=== PATIENT | male | born 1960 | race Hispanic/Latino ===

== ENCOUNTER 2019-09-03 17:47 | Emergency (ER) | payer OTHER ==
[2019-09-03] MEDS ORDERED: KETOROLAC 30 MG/ML INJ ONE (18:31)
--- NOTE | 2019-09-03 18:45 | ER ---
Nurse's Notes [facility] Name: Salazar Poole Age: 59 yrs Sex: Male : 1960 Arrival Date: 09/03/2019 Time: 17:47 Bed 9 Private MD: Diagnosis: Gout Presentation: 09/03 17:56 Presenting complaint: Patient states: Left wrist pain and swelling since yesterday. aj1 Patient reports history of gout. Transition of care: patient was not received from another setting of care. Onset of symptoms was 2018. Risk Assessment: Do you want to hurt yourself or someone else? Patient reports no desire to harm self or others. Initial Sepsis Screen: Does the patient meet any 2 criteria? No. Patient's initial sepsis screen is negative. Does the patient have a suspected source of infection? No. Patient's initial sepsis screen is negative. Care prior to arrival: None. 17:56 Method Of Arrival: Ambulatory aj 17:56 Acuity: DUARTE 4 aj1 Triage Assessment: 17:56 General: Appears in no apparent distress. uncomfortable, Behavior is calm, cooperative, aj1 appropriate for age. Pain: Complains of pain in left wrist Pain currently is 10 out of 10 on a pain scale. Neuro: Level of Consciousness is awake, alert, obeys commands. Cardiovascular: Patient's skin is warm and dry. Respiratory: Airway is patent Respiratory effort is even, unlabored, Respiratory pattern is regular, symmetrical. Musculoskeletal: Range of motion: limited in left wrist. Historical: - Allergies: 17:56 No Known Allergies; aj1 - Home Meds: 17:56 None [Active]; aj1 - PMHx: 17:56 Gout; aj1 - Immunization history:: Flu vaccine is not up to date. - Social history:: Smoking status: Patient/guardian denies using tobacco. - Ebola Screening: : Patient denies travel to an Ebola-affected area in the 21 days before illness onset. Screenin:20 Abuse screen: Denies threats or abuse. Nutritional screening: No deficits noted. tr5 Tuberculosis screening: No symptoms or risk factors identified. Fall Risk None identified. Assessment: 18:20 General: Appears uncomfortable, Behavior is calm, cooperative, appropriate for age. tr5 Pain: Complains of pain in left hand and wrist. Neuro: Level of Consciousness is awake, alert, obeys commands, Oriented to person, place, time. Cardiovascular: Heart tones present Capillary refill < 3 seconds Pulses are all present. Edema is 2+ to left hand. Respiratory: Airway is patent Respiratory effort is even, unlabored, Respiratory pattern is regular, symmetrical. GI: No signs and/or symptoms were reported involving the gastrointestinal system. : No signs and/or symptoms were reported regarding the genitourinary system. EENT: No signs and/or symptoms were reported regarding the EENT system. Derm: No signs and/or symptoms reported regarding the dermatologic system. Musculoskeletal: Reports pain in left hand. Vital Signs: 17:56 BP 166 / 98; Pulse 82; Resp 18; Temp 98.1; Pulse Ox 98% on R/A; Weight 96.16 kg (R); aj1 Height 5 ft. 6 in. (167.64 cm) (R); Pain 10/10; 17:56 Body Mass Index 34.22 (96.16 kg, 167.64 cm) aj1 ED Course: 17:47 Patient arrived in ED. as 17:56 Triage completed. aj1 17:56 Arm band placed on. aj1 18:01 Kodak Mcdowell PA is PHCP. [facility] 18:01 Juan Lee MD is Attending Physician. lena 18:28 Kvng Krause RN is Primary Nurse. tr5 18:55 No provider procedures requiring assistance completed. Patient did not have IV access tr5 during this emergency room visit. 18:56 Bed in low position. Call light in reach. Side rails up X 1. tr5 Administered Medications: 18:34 Drug: Ketorolac 30 mg Route: IM; Site: left ventrogluteal; tr5 19:00 Follow up: Response: Pain is decreased tr5 Outcome: 18:45 Discharge ordered by MD. [facility] 18:55 Discharged to home ambulatory. tr5 18:55 Condition: stable 18:55 Discharge instructions given to patient, family, Instructed on discharge instructions, follow up and referral plans. medication usage, Demonstrated understanding of instructions, follow-up care, medications, Prescriptions given X 2. 18:56 Patient left the ED. tr5 Signatures: Cyndi Espinosa RN RN aj Kodak Mcdowell PA PA jmm Martinez, Amelia as Jimi, Kvng, RN RN tr5
--- NOTE | 2019-09-03 18:45 | EDPHYS ---
Physician Documentation [facility] Name: Salazar Poole Age: 59 yrs Sex: Male : 1960 Arrival Date: 09/03/2019 Time: 17:47 Bed 9 Private MD: ED Physician Juan Lee HPI: 09/03 18:15 This 59 yrs old Male presents to ER via Ambulatory with complaints of Wrist jmm Pain - Gout. 18:15 Onset: The symptoms/episode began/occurred gradually, 2 day(s) ago. Modifying factors: jmm The symptoms are alleviated by nothing, the symptoms are aggravated by movement. This is a 59 year old male with a history of gout presents to the ED with complaints of left wrist pain beginning 2 days ago. Patient states he at [employer] on Monday. Denies fever. Has had similar symptoms in the past. . 18:25 Associated signs and symptoms: Pertinent negatives: fever, numbness distally, tingling jmm distally, vomiting. Historical: - Allergies: 17:56 No Known Allergies; aj1 - Home Meds: 17:56 None [Active]; aj1 - PMHx: 17:56 Gout; aj1 - Immunization history:: Flu vaccine is not up to date. - Social history:: Smoking status: Patient/guardian denies using tobacco. - Ebola Screening: : Patient denies travel to an Ebola-affected area in the 21 days before illness onset. ROS: 18:25 Constitutional: Negative for fever, chills, and weight loss, Cardiovascular: Negative jmm for chest pain, palpitations, and edema, Respiratory: Negative for shortness of breath, cough, wheezing, and pleuritic chest pain. 18:25 MS/extremity: Positive for pain. 18:25 All other systems are negative. Exam: 18:25 Hand exam: Exam is positive for erythema. jmm 18:25 Constitutional: This is a well developed, well nourished patient who is awake, alert, and in no acute distress. Head/Face: atraumatic. Eyes: EOMI, no conjunctival erythema appreciated ENT: Moist Mucus Membranes Neck: Trachea midline, Supple Chest/axilla: Normal chest wall appearance and motion. Cardiovascular: Regular rate and rhythm. No edema appreciated Respiratory: Normal respirations, no respiratory distress appreciated Abdomen/GI: Non distended, soft Back: Normal ROM Skin: General appearance color normal 18:25 Musculoskeletal/extremity: erythema noted to the left wrist, no indurations appreciated, mildly tender to palpation. 18:25 Skin: Appearance: Color: normal in color, left wrist erythema. 18:25 Neuro: Orientation: is normal, Mentation: is normal, Memory: is normal. 18:25 Psych: Behavior/mood is pleasant, cooperative. Vital Signs: 17:56 BP 166 / 98; Pulse 82; Resp 18; Temp 98.1; Pulse Ox 98% on R/A; Weight 96.16 kg (R); aj1 Height 5 ft. 6 in. (167.64 cm) (R); Pain 10/10; 17:56 Body Mass Index 34.22 (96.16 kg, 167.64 cm) aj1 MDM: 18:15 Patient medically screened. [facility] 18:44 Data reviewed: vital signs, nurses notes. Counseling: I had a detailed discussion with angel luis the patient and/or guardian regarding: the historical points, exam findings, and any diagnostic results supporting the discharge/admit diagnosis, the need for outpatient follow up, to return to the emergency department if symptoms worsen or persist or if there are any questions or concerns that arise at home. ED course: Patient is alert and non toxic in appearance in the ED. I do not suspect cellulitis. Patient has hd similar symptoms in the past. . Administered Medications: 18:34 Drug: Ketorolac 30 mg Route: IM; Site: left ventrogluteal; tr5 19:00 Follow up: Response: Pain is decreased tr5 Disposition: 09/04 07:55 Co-signature as Attending Physician, Juan Lee MD I agree with the assessment and [facility] plan of care. Disposition: 09/03/19 18:45 Discharged to Home. Impression: Gout. - Condition is Stable. - Discharge Instructions: Gout. - Prescriptions for indomethacin 75 mg Oral capsule, extended release - take 1 capsule by ORAL route 2 times per day for 7 days; 20 capsule. Medrol (Reji) 4 mg Oral Tablets, Dose Pack - take 1 tablet by ORAL route as directed - follow package instructions; 1 packet. - Medication Reconciliation Form, Thank You Letter, Antibiotic Education, Prescription Opioid Use form. - Follow up: Private Physician; When: 2 - 3 days; Reason: Recheck today's complaints, Continuance of care, Re-evaluation by your physician. Signatures: Cyndi Espinosa RN RN aj1 Juan Lee MD MD cha Mickail, Joel, PA PA jmm Rodriguez, Tommie, RN RN tr5 Corrections: (The following items were deleted from the chart) 09/03 18:26 18:15 This is a 59 year old male with a history. angel luis hein 18:56 18:45 09/03/2019 18:45 Discharged to Home. Impression: Gout. Condition is Stable. Forms tr5 are Medication Reconciliation Form, Thank You Letter, Antibiotic Education, Prescription Opioid Use. Follow up: Private Physician; When: 2 - 3 days; Reason: Recheck today's complaints, Continuance of care, Re-evaluation by your physician. angel luis
[2019-09-03 19:25] VITALS: BP 166/98; TEMP 98.1; O2SAT 98
== END 2019-09-03 18:56 | disposition home or self-care (01) ==
LOC: ER 17:47
DX: M10.9 Gout, unspecified (principal)
CPT/HCPCS: 96372; 99283

== ENCOUNTER 2019-10-12 09:04 | Emergency (ER) | payer OTHER ==
--- OUTSIDE RECORDS SUMMARY | 2019-10-12 09:06 | XMS REPORT ---
:1960 Author [facility] Address [address] [place] [address] Dr. Cardona [address] [place] [id number] Care Team Providers Name Role Phone Unavailable Unavailable Unavailable Problems This patient has no known problems. Allergies, Adverse Reactions, Alerts This patient has no known allergies or adverse reactions. Medications This patient has no known medications.
[2019-10-12] MEDS ORDERED: COLCHICINE 0.6 MG TAB ONE (09:22)
[2019-10-12] MEDS ORDERED: dexAMETHasone 10 MG/ML VIAL ONE (09:22)
--- NOTE | 2019-10-12 09:45 | EDPHYS ---
Physician Documentation [facility] Name: Salazar Poole Age: 59 yrs Sex: Male : 1960 Arrival Date: 10/12/2019 Time: 09:06 Bed 7 Private MD: ED Physician Jesse Burgos HPI: 10/12 09:24 This 59 yrs old Male presents to ER via Ambulatory with complaints of Hand kb Injury. 09:24 The patient or guardian reports pain, swelling, tenderness. The complaints affect the kb left wrist. Pt reports pain to wrist for 2 days. States it feels the same as previous gout attacks. Reports the only thing that normally helps is a steroid shot. . 09:28 Context: The problem was sustained at home, resulted from a chronic condition, gout. kb Onset: The symptoms/episode began/occurred 2 day(s) ago. Modifying factors: The symptoms are alleviated by nothing, the symptoms are aggravated by nothing. Associated signs and symptoms: The patient has no apparent associated signs or symptoms. Severity of symptoms: At their worst the symptoms were moderate, in the emergency department the symptoms are unchanged. The patient has experienced similar episodes in the past, multiple times, and the symptoms today are exactly the same. The patient has not recently seen a physician. Historical: - Allergies: 09:49 No Known Drug Allergies; tw2 - Home Meds: 09:49 None [Active]; tw2 - PMHx: 09:49 Gout; tw2 - PSHx: 09:49 left knee; tw2 - Immunization history:: Adult Immunizations. - Social history:: Smoking status: . - Ebola Screening: : Patient denies travel to an Ebola-affected area in the 21 days before illness onset. ROS: 09:24 Constitutional: Negative for fever, chills, and weight loss, Cardiovascular: Negative kb for chest pain, palpitations, and edema, Respiratory: Negative for shortness of breath, cough, wheezing, and pleuritic chest pain, Abdomen/GI: Negative for abdominal pain, nausea, vomiting, diarrhea, and constipation, Back: Negative for injury and pain, : Negative for injury, bleeding, discharge, and swelling, Neuro: Negative for headache, weakness, numbness, tingling, and seizure. 09:24 MS/extremity: Positive for ecchymosis, pain, swelling, tenderness, warmth, of the left wrist. Exam: 09:24 Constitutional: This is a well developed, well nourished patient who is awake, alert, kb and in no acute distress. Head/Face: Normocephalic, atraumatic. Neck: Trachea midline, no thyromegaly or masses palpated, and no cervical lymphadenopathy. Supple, full range of motion without nuchal rigidity, or vertebral point tenderness. No Meningismus. Chest/axilla: Normal chest wall appearance and motion. Nontender with no deformity. No lesions are appreciated. Cardiovascular: Regular rate and rhythm with a normal S1 and S2. No gallops, murmurs, or rubs. Normal PMI, no JVD. No pulse deficits. Respiratory: Lungs have equal breath sounds bilaterally, clear to auscultation and percussion. No rales, rhonchi or wheezes noted. No increased work of breathing, no retractions or nasal flaring. Abdomen/GI: Soft, non-tender, with normal bowel sounds. No distension or tympany. No guarding or rebound. No evidence of tenderness throughout. Neuro: Awake and alert, GCS 15, oriented to person, place, time, and situation. Cranial nerves II-XII grossly intact. Motor strength 5/5 in all extremities. Sensory grossly intact. Cerebellar exam normal. Normal gait. 09:24 Musculoskeletal/extremity: Extremities: grossly normal except: noted in the left wrist: erythema, pain, swelling, tenderness, ROM: no acute changes, Circulation is intact in all extremities. Sensation intact. Vital Signs: 09:16 BP 153 / 79; Pulse 92; Resp 18; Temp 97.6(TE); Pulse Ox 97% on R/A; Weight 95.25 kg tw2 (R); Height 5 ft. 10 in. (177.80 cm); Pain 10/10; 09:16 Body Mass Index 30.13 (95.25 kg, 177.80 cm) tw2 MDM: 09:12 Patient medically screened. kb 09:24 Data reviewed: vital signs, nurses notes. Data interpreted: Pulse oximetry: on room air kb is 97 %. Interpretation: normal. 09:34 Counseling: I had a detailed discussion with the patient and/or guardian regarding: the kb historical points, exam findings, and any diagnostic results supporting the discharge/admit diagnosis, the need for outpatient follow up, a family practitioner, to return to the emergency department if symptoms worsen or persist or if there are any questions or concerns that arise at home. Administered Medications: 09:22 Drug: Decadron 10 mg Route: IM; Site: right gluteus; 09:50 Follow up: Response: No adverse reaction 09:22 Drug: colchicine 0.6 mg Route: PO; 09:50 Follow up: Response: No adverse reaction Disposition: 09:51 Co-signature as Attending Physician, Jesse Burgos MD. rn Disposition: 10/12/19 09:44 Discharged to Home. Impression: Gout. - Condition is Stable. - Discharge Instructions: Gout, [id number]. - Prescriptions for indomethacin 25 mg Oral capsule - take 2 capsule by ORAL route 2 times per day with food; 20 capsule. - Medication Reconciliation Form, Thank You Letter, Antibiotic Education, Prescription Opioid Use form. - Follow up: Emergency Department; When: As needed; Reason: Worsening of condition. Follow up: Private Physician; When: 2 - 3 days; Reason: Recheck today's complaints, Continuance of care, Re-evaluation by your physician. Signatures: Cassidy Felton, ENGINEERING LEADER-C ENGINEERING LEADER-Ckb Jesse Burgos MD MD rn Wise, Tara, RN RN tw2 Corrections: (The following items were deleted from the chart) 09:49 09:44 10/12/2019 09:44 Discharged to Home. Impression: Gout. Condition is Stable. tw2 Discharge Instructions: Gout, [id number]. Prescriptions for indomethacin 25 mg Oral capsule - take 2 capsule by ORAL route 2 times per day with food; 20 capsule. and Forms are Medication Reconciliation Form, Thank You Letter, Antibiotic Education, Prescription Opioid Use. Follow up: Emergency Department; When: As needed; Reason: Worsening of condition. Follow up: Private Physician; When: 2 - 3 days; Reason: Recheck today's complaints, Continuance of care, Re-evaluation by your physician. kb
--- NOTE | 2019-10-12 09:45 | ER ---
Nurse's Notes [facility] Name: Salazar Poole Age: 59 yrs Sex: Male : 1960 Arrival Date: 10/12/2019 Time: 09:06 Bed 7 Private MD: Diagnosis: Gout Presentation: 10/12 09:15 Presenting complaint: Patient states: it started in my LEFT hand , it is tw2 swollen and red, and i think it is my gout, i have had it before and it feels like it. Transition of care: patient was not received from another setting of care. Onset of symptoms was October 12, 2019. Risk Assessment: Do you want to hurt yourself or someone else? Patient reports no desire to harm self or others. Initial Sepsis Screen: Does the patient meet any 2 criteria? No. Patient's initial sepsis screen is negative. Does the patient have a suspected source of infection? No. Patient's initial sepsis screen is negative. Initial Sepsis Screen: Does the patient meet any 2 criteria? HR > 90 bpm. Care prior to arrival: None. 09:15 Method Of Arrival: Ambulatory tw2 09:15 Acuity: DUARTE 4 tw2 Triage Assessment: 09:16 General: Appears in no apparent distress. Behavior is calm, cooperative, appropriate tw2 for age. Pain: Complains of pain in left hand. Musculoskeletal: Swelling present in left hand. Injury Description: n/a. Historical: - Allergies: 09:49 No Known Drug Allergies; tw2 - Home Meds: 09:49 None [Active]; tw2 - PMHx: 09:49 Gout; tw2 - PSHx: 09:49 left knee; tw2 - Immunization history:: Adult Immunizations. - Social history:: Smoking status: . - Ebola Screening: : Patient denies travel to an Ebola-affected area in the 21 days before illness onset. Screenin:48 Abuse screen: Denies threats or abuse. Nutritional screening: No deficits noted. tw2 Tuberculosis screening: No symptoms or risk factors identified. Fall Risk None identified. Assessment: 09:15 General: Appears in no apparent distress. well groomed, Behavior is calm, cooperative, tw2 appropriate for age. Pain: Complains of pain in left hand. Neuro: Level of Consciousness is awake, alert, obeys commands, Oriented to person, place, time, situation. Cardiovascular: Heart tones S1 S2 Patient's skin is warm and dry. Respiratory: Airway is patent Respiratory effort is even, unlabored, Respiratory pattern is regular, symmetrical. GI: No signs and/or symptoms were reported involving the gastrointestinal system. : No signs and/or symptoms were reported regarding the genitourinary system. Derm: Skin is intact, is healthy with good turgor. Musculoskeletal: Swelling present in left hand. 09:49 Reassessment: Patient appears in no apparent distress at this time. No changes from tw2 previously documented assessment. Patient and/or family updated on plan of care and expected duration. Pain level reassessed. Patient is alert, oriented x 3, equal unlabored respirations, skin warm/dry/pink. Vital Signs: 09:16 BP 153 / 79; Pulse 92; Resp 18; Temp 97.6(TE); Pulse Ox 97% on R/A; Weight 95.25 kg tw2 (R); Height 5 ft. 10 in. (177.80 cm); Pain 10/10; 09:16 Body Mass Index 30.13 (95.25 kg, 177.80 cm) tw2 ED Course: 09:06 Patient arrived in ED. as 09:09 Cassidy Felton F[facility]-C [facility]. kb 09:09 Jesse Burgos MD is Attending Physician. kb 09:12 Call light in reach. Adult w/ patient. tw2 09:15 Miroslava Posada, RN is Primary Nurse. tw2 09:16 Triage completed. tw2 09:16 Arm band placed on. tw2 09:49 No provider procedures requiring assistance completed. Patient did not have IV access tw2 during this emergency room visit. Administered Medications: : Drug: Decadron 10 mg Route: IM; Site: right gluteus; tw2 09:50 Follow up: Response: No adverse reaction tw2 09:22 Drug: colchicine 0.6 mg Route: PO; tw2 :50 Follow up: Response: No adverse reaction tw2 Outcome: :44 Discharge ordered by . kb 09:49 Discharged to home ambulatory, with significant other. tw2 09:49 Condition: stable 09:49 Discharge instructions given to patient, significant other, Instructed on discharge instructions, follow up and referral plans. medication usage, Demonstrated understanding of instructions, follow-up care, medications, Prescriptions given X 1. 09:49 Patient left the ED. tw2 Signatures: Cassidy Felton, MIGUEL DUARTE-Mariana Munoz as Miroslava Posada, RN RN tw2
[2019-10-12 09:55] VITALS: BP 153/79; TEMP 97.6; O2SAT 97
== END 2019-10-12 09:49 | disposition home or self-care (01) ==
LOC: ER 09:04
DX: M10.9 Gout, unspecified (principal)
CPT/HCPCS: 96372; 99283; J1100

== ENCOUNTER 2021-10-05 18:25 | Emergency (ER) | payer BC ==
--- OUTSIDE RECORDS SUMMARY | 2021-10-05 18:27 | XMS REPORT | Continuity of Care Document ---
:1960 Author Organization [facility] t Address [facility]. Cardona [address] [place] [id number] Care Team Providers Name Role Phone Unavailable Unavailable Unavailable Problems This patient has no known problems. Allergies, Adverse Reactions, Alerts This patient has no known allergies or adverse reactions. Medications This patient has no known medications. Procedures This patient has no known procedures. Results This patient has no known results.
[2021-10-05] MEDS ORDERED: COLCHICINE 0.6 MG TAB ONE (21:00)
[2021-10-05] MEDS ORDERED: HYDROCODONE/APAP 10/325 TAB ONE (21:00)
[2021-10-05] MEDS ORDERED: dexAMETHasone 10 MG/ML VIAL ONE (21:09)
--- NOTE | 2021-10-05 21:40 | ER ---
Nurse's Notes [facility] Name: Salazar Poole Age: 61 yrs Sex: Male : 1960 Arrival Date: 10/05/2021 Time: 18:27 Bed 5 Private MD: Diagnosis: Gout, unspecified Presentation: 10/05 18:34 Chief complaint: Patient states: L elbow and L arm pain for 3 days. History of gout, ll1 feels the same. Coronavirus screen: Vaccine status: Patient reports receiving the 1st dose of the Covid vaccine. Client denies travel out of the [place] in the last 14 days. At this time, the client does not indicate any symptoms associated with coronavirus-19. Ebola Screen: Patient denies travel to an Ebola-affected area in the 21 days before illness onset. Initial Sepsis Screen: Does the patient meet any 2 criteria? No. Patient's initial sepsis screen is negative. Does the patient have a suspected source of infection? Yes: Bone or joint infection. Risk Assessment: Do you want to hurt yourself or someone else? Patient reports no desire to harm self or others. Onset of symptoms was October 03, 2021. 18:34 Method Of Arrival: Ambulatory ll1 18:34 Acuity: DUARTE 4 ll1 Historical: - Allergies: 18:36 No Known Allergies; ll1 - PMHx: 18:36 Gout; ll1 - PSHx: 18:36 knee SX; ll1 - Immunization history:: Client reports receiving the 1st dose of the Covid vaccine, Flu vaccine is not up to date. - Social history:: Smoking status: Patient denies any tobacco usage or history of. Screenin:14 Abuse screen: Denies threats or abuse. Nutritional screening: No deficits noted. al4 Tuberculosis screening: No symptoms or risk factors identified. Fall Risk None identified. Assessment: 21:12 General: Appears in no apparent distress. uncomfortable, Behavior is calm, cooperative, al4 appropriate for age. Pain: Complains of pain in Left Elbow, Left forearm Pain currently is 10 out of 10 on a pain scale. Pain began Monday Morning. Neuro: Level of Consciousness is awake, alert, obeys commands, Oriented to person, place, time. Cardiovascular: Capillary refill < 3 seconds Patient's skin is warm and dry. Respiratory: Airway is patent Respiratory effort is even, unlabored, Respiratory pattern is regular, symmetrical. GI: No signs and/or symptoms were reported involving the gastrointestinal system. : No signs and/or symptoms were reported regarding the genitourinary system. EENT: No signs and/or symptoms were reported regarding the EENT system. Derm: No signs and/or symptoms reported regarding the dermatologic system. Musculoskeletal: Reports pain in Left elbow radiates down forearm Pain is 10 out of 10 on a pain scale. 22:04 Reassessment: Patient and/or family updated on plan of care and expected duration. Pain al4 level reassessed. Patient is alert, oriented x 3, equal unlabored respirations, skin warm/dry/pink. Vital Signs: 18:34 BP 159 / 87; Pulse 99; Resp 18; Temp 98.9; Pulse Ox 99% ; Weight 90.72 kg; Height 5 ft. ll1 6 in. (167.64 cm); Pain 10/10; 21:00 BP 158 / 97; Pulse 88; Resp 18; Pulse Ox 99% ; Pain 10/10; al4 22:04 BP 137 / 85; Pulse 84; Resp 18; Pulse Ox 94% ; al4 18:34 Body Mass Index 32.28 (90.72 kg, 167.64 cm) ll1 ED Course: 18:27 Patient arrived in ED. mr 18:35 Triage completed. ll1 18:36 Arm band placed on. ll1 19:40 Greg Cummins NP is PHCP. pm1 19:40 Noman Johnson MD is Attending Physician. pm1 19:45 Jake Dc RN is Primary Nurse. as6 21:14 Patient has correct armband on for positive identification. Placed in gown. Adult w/ al4 patient. 22:11 No provider procedures requiring assistance completed. Patient did not have IV access as6 during this emergency room visit. Administered Medications: 21:06 Drug: [place] (HYDROcodone-acetaminophen) 10 mg-325 mg 1 tabs Route: PO; al4 22:11 Follow up: Response: No adverse reaction; RASS: Alert and Calm (0) as6 22:13 Follow up: Response: No adverse reaction al4 21:07 Drug: Colcrys (colchicine) 1.2 mg Route: PO; al4 22:11 Follow up: Response: No adverse reaction as6 22:13 Follow up: Response: No adverse reaction al4 21:12 Drug: Decadron (dexamethasone) 10 mg Route: IM; Site: right gluteus; al4 22:11 Follow up: Response: No adverse reaction as6 22:13 Follow up: Response: No adverse reaction al4 Outcome: 21:39 Discharge ordered by MD. pm1 22:12 Discharged to home ambulatory. as6 22:12 Condition: stable 22:12 Discharge instructions given to patient, Instructed on discharge instructions, follow up and referral plans. medication usage, Demonstrated understanding of instructions, follow-up care, medications, Prescriptions given X 2. 22:13 Patient left the ED. as6 Signatures: Sherrell Calero Patrick, NP [employer] pm1 Man Burger RN RN ll1 Jake Dc RN RN as6 Lester Monroy al4
--- NOTE | 2021-10-05 21:40 | EDPHYS ---
Physician Documentation [facility] Name: Salazar Poole Age: 61 yrs Sex: Male : 1960 Arrival Date: 10/05/2021 Time: 18:27 Bed 5 Private MD: ED Physician Noman Johnson HPI: 10/05 19:49 This 61 yrs old Male presents to ER via Ambulatory with complaints of Gout. pm1 19:49 The patient or guardian complains of pain, swelling. The complaints affect the left pm1 elbow. 19:49 Context: The problem was sustained at an unknown location, resulted from alcohol use pm1 with hx of gout. Onset: The symptoms/episode began/occurred 3 day(s) ago. Treatment prior to arrival includes: no previous treatment. Modifying factors: The symptoms are alleviated by nothing. the symptoms are aggravated by nothing. Associated signs and symptoms: Pertinent negatives: decreased range of motion, deformity. Severity of symptoms: in the emergency department the symptoms are unchanged. The patient has experienced similar episodes in the past, multiple times. The patient has not recently seen a physician. Historical: - Allergies: 18:36 No Known Allergies; ll1 - PMHx: 18:36 Gout; ll1 - PSHx: 18:36 knee SX; ll1 - Immunization history:: Client reports receiving the 1st dose of the Covid vaccine, Flu vaccine is not up to date. - Social history:: Smoking status: Patient denies any tobacco usage or history of. ROS: 19:49 Constitutional: Negative for fever, chills, and weight loss, Cardiovascular: Negative pm1 for chest pain, palpitations, and edema, Respiratory: Negative for shortness of breath, cough, wheezing, and pleuritic chest pain, Abdomen/GI: Negative for abdominal pain, nausea, vomiting, diarrhea, and constipation. 19:49 Skin: Negative for injury, rash, and discoloration, Neuro: Negative for headache, weakness, numbness, tingling, and seizure. 19:49 MS/extremity: Positive for pain, swelling, tenderness, of the left elbow, Negative for decreased range of motion, deformity. 19:49 All other systems are negative. Exam: 19:49 Constitutional: This is a well developed, well nourished patient who is awake, alert, pm1 and in no acute distress. Head/Face: Normocephalic, atraumatic. 19:49 Skin: Warm, dry with normal turgor. Normal color with no rashes, no lesions, and no evidence of cellulitis. 19:49 Cardiovascular: Exam negative for acute changes, Rate: normal, Rhythm: regular, Pulses: no pulse deficits are appreciated. 19:49 Respiratory: Exam negative for acute changes, respiratory distress, shortness of breath. 19:49 Musculoskeletal/extremity: Extremities: grossly normal except: noted in the left elbow: swelling, tenderness, There is no evidence of decreased ROM, deformity. 19:49 Neuro: Exam negative for acute changes, Orientation: is normal, Mentation: is normal, Motor: is normal, moves all fours. Vital Signs: 18:34 BP 159 / 87; Pulse 99; Resp 18; Temp 98.9; Pulse Ox 99% ; Weight 90.72 kg; Height 5 ft. ll1 6 in. (167.64 cm); Pain 10/10; 21:00 BP 158 / 97; Pulse 88; Resp 18; Pulse Ox 99% ; Pain 10/10; al4 22:04 BP 137 / 85; Pulse 84; Resp 18; Pulse Ox 94% ; al4 18:34 Body Mass Index 32.28 (90.72 kg, 167.64 cm) ll1 MDM: 19:41 Patient medically screened. pm1 21:39 Data reviewed: vital signs. Data interpreted: Pulse oximetry: on room air is 99 %. pm1 Interpretation: normal. Counseling: I had a detailed discussion with the patient and/or guardian regarding: the historical points, exam findings, and any diagnostic results supporting the discharge/admit diagnosis, the need for outpatient follow up, to return to the emergency department if symptoms worsen or persist or if there are any questions or concerns that arise at home. Administered Medications: 21:06 Drug: [place] (HYDROcodone-acetaminophen) 10 mg-325 mg 1 tabs Route: PO; al4 22:11 Follow up: Response: No adverse reaction; RASS: Alert and Calm (0) as6 22:13 Follow up: Response: No adverse reaction al4 21:07 Drug: Colcrys (colchicine) 1.2 mg Route: PO; al4 22:11 Follow up: Response: No adverse reaction as6 22:13 Follow up: Response: No adverse reaction al4 21:12 Drug: Decadron (dexamethasone) 10 mg Route: IM; Site: right gluteus; al4 22:11 Follow up: Response: No adverse reaction as6 22:13 Follow up: Response: No adverse reaction al4 Disposition: 10/06 05:17 Co-signature as Attending Physician, Nmoan oJhnson MD. mh7 Disposition Summary: 10/05/21 21:39 Discharge Ordered Location: Home pm1 Problem: new pm1 Symptoms: have improved pm1 Condition: Stable pm1 Diagnosis - Gout, unspecified pm1 Followup: pm1 - With: Emergency Department - When: As needed - Reason: Worsening of condition Followup: pm1 - With: Private Physician - When: 2 - 3 days - Reason: Recheck today's complaints, Continuance of care, Re-evaluation by your physician Discharge Instructions: - Discharge Summary Sheet pm1 - Gout pm1 - Low-Purine Eating Plan pm1 Forms: - Medication Reconciliation Form pm1 - Thank You Letter pm1 - Antibiotic Education pm1 - Prescription Opioid Use pm1 - Work release form al4 Prescriptions: - indomethacin 25 mg Oral capsule - take 2 capsule by ORAL route 2 times per day As needed with food; 20 capsule; pm1 Refills: 0, Product Selection Permitted - Medrol (Reji) 4 mg Oral Tablets, Dose Pack - take 1 tablet by ORAL route as directed - follow package instructions; 1 pm1 packet; Refills: 0, Product Selection Permitted Signatures: Greg Cummins NP [employer] pm1 Man Burger RN RN 1 Noman Johnson MD MD [facility] Lester Monroy [facility] Jake Dc RN as6
[2021-10-05 22:18] VITALS: TEMP 98.9
[2021-10-05 22:22] VITALS: BP 137/85; O2SAT 94
== END 2021-10-05 22:13 | disposition home or self-care (01) ==
LOC: ER 18:25
DX: M10.9 Gout, unspecified (principal)
CPT/HCPCS: 96372; 99283; J1100

== ENCOUNTER 2021-12-17 04:00 | Emergency (ER) | payer BC ==
--- OUTSIDE RECORDS SUMMARY | 2021-12-17 04:01 | XMS REPORT | Continuity of Care Document ---
:1960 Author Organization [facility] t Address [facility] [address] Cardona [address] [place] [id number] Care Team Providers Name Role Phone Unavailable Unavailable Unavailable Problems This patient has no known problems. Allergies, Adverse Reactions, Alerts This patient has no known allergies or adverse reactions. Medications This patient has no known medications. Procedures This patient has no known procedures. Results This patient has no known results.
--- NOTE | 2021-12-17 05:06 | EDPHYS ---
Physician Documentation [facility] Name: Salazar Poole Age: 61 yrs Sex: Male : 1960 Arrival Date: 12/17/2021 Time: 04:03 Bed 18 Private MD: ED Physician Derian Melendez Historical: - Allergies: 12/17 04:42 No Known Allergies; al4 - PMHx: 04:42 Gout; al4 - PSHx: 04:42 knee sx; al4 - Immunization history:: Adult Immunizations up to date, Client reports receiving the Jesús \T\ Jesús single-dose vaccine. - Social history:: Smoking status: Patient denies any tobacco usage or history of. Vital Signs: 04:40 BP 162 / 85; Pulse 84; Resp 24; Temp 99.5; Pulse Ox 98% ; Weight 95.25 kg (R); Height 5 al4 ft. 9 in. (175.26 cm) (R); Pain 10/10; 04:40 Body Mass Index 31.01 (95.25 kg, 175.26 cm) al4 MDM: 05:05 Patient medically screened. kdr Administered Medications: 05:17 Drug: SOLU-Medrol (methylPREDNISolone sodium succinate) 125 mg Route: IM; Site: left ll3 gluteus; 05:38 Follow up: Response: No adverse reaction ll3 05:17 Drug: Colcrys (colchicine) 1.2 mg Route: PO; ll3 05:38 Follow up: Response: No adverse reaction ll3 Disposition Summary: 12/17/21 05:05 Discharge Ordered Location: Home kdr Problem: an acute exacerbation kdr Symptoms: have improved kdr Condition: Stable kdr Diagnosis - Gout, unspecified kdr - Other secondary gout, left elbow kdr Followup: kdr - With: Private Physician - When: 2 - 3 days - Reason: If symptoms return, Further diagnostic work-up, Recheck today's complaints, Continuance of care, Re-evaluation by your physician Discharge Instructions: - Discharge Summary Sheet kdr - Gout kdr Forms: - Medication Reconciliation Form kdr - Thank You Letter kdr - Antibiotic Education kdr - Prescription Opioid Use kdr - Work release form ll3 Prescriptions: - indomethacin 25 mg Oral capsule - take 2 capsule by ORAL route 3 times per day with food; 50 capsule; Refills: 0, kdr Product Selection Permitted - Medrol (Reji) 4 mg Oral Tablets, Dose Pack - take 1 tablet by ORAL route as directed - follow package instructions; 1 kdr packet; Refills: 0, Product Selection Permitted - Tylenol-Codeine #3 300 mg-30 mg Oral - take 1 tablet by ORAL route every 4-6 hours As needed; 16 tablet; Refills: 0, kdr Product Selection Permitted Signatures: Derian Melendez MD MD kdr Loubet, Lynsea, RN RN 3 Lester Monroy
--- NOTE | 2021-12-17 05:06 | ER ---
Nurse's Notes [facility] Name: Salazar Poole Age: 61 yrs Sex: Male : 1960 Arrival Date: 12/17/2021 Time: 04:03 Bed 18 Private MD: Diagnosis: Gout, unspecified;Other secondary gout, left elbow Presentation: 12/17 04:40 Chief complaint: Patient states: "I am having a gout flare up. the pain started on al4 Monday." patient c/o pain 10/10 L arm. Coronavirus screen: Vaccine status: Patient reports receiving the 1st dose of the Covid vaccine. . Ebola Screen: No symptoms or risks identified at this time. Initial Sepsis Screen: Does the patient meet any 2 criteria? No. Patient's initial sepsis screen is negative. Does the patient have a suspected source of infection? No. Patient's initial sepsis screen is negative. Risk Assessment: Do you want to hurt yourself or someone else? Patient reports no desire to harm self or others. Onset of symptoms was December 14, 2021. 04:40 Method Of Arrival: Ambulatory al4 04:40 Acuity: DUARTE 3 al4 Triage Assessment: 04:42 General: Appears in no apparent distress. uncomfortable, Behavior is calm, cooperative. al4 Pain: Complains of pain in left arm Pain currently is 10 out of 10 on a pain scale. Neuro: Level of Consciousness is awake, alert, obeys commands, Oriented to person, place, time, situation. Cardiovascular: Capillary refill < 3 seconds Patient's skin is warm and dry. Respiratory: Airway is patent Respiratory effort is unlabored, Respiratory pattern is regular. Musculoskeletal: Range of motion: intact in all extremities. Historical: - Allergies: 04:42 No Known Allergies; al4 - PMHx: 04:42 Gout; al4 - PSHx: 04:42 knee sx; al4 - Immunization history:: Adult Immunizations up to date, Client reports receiving the Jesús \\T\\ Jesús single-dose vaccine. - Social history:: Smoking status: Patient denies any tobacco usage or history of. Screenin:48 Abuse screen: Denies threats or abuse. Nutritional screening: No deficits noted. ll3 Tuberculosis screening: No symptoms or risk factors identified. 05:38 Fall Risk None identified. ll3 Assessment: 04:48 General: Appears uncomfortable, Behavior is calm, cooperative. Pain: Complains of pain ll3 in left antecubital area and dorsal aspect of left forearm Pain currently is 10 out of 10 on a pain scale. Pain began Monday Is continuous, Current management is with Advil. Neuro: Level of Consciousness is awake, alert, obeys commands, Oriented to person, place, time, situation. Respiratory: Respiratory effort is even, unlabored, Respiratory pattern is regular, symmetrical. Derm: Skin is pink, warm \\T\\ dry. Musculoskeletal: Circulation, motion, and sensation intact. Swelling present in left elbow Reports pain in left arm. Vital Signs: 04:40 BP 162 / 85; Pulse 84; Resp 24; Temp 99.5; Pulse Ox 98% ; Weight 95.25 kg (R); Height 5 al4 ft. 9 in. (175.26 cm) (R); Pain 10/10; 04:40 Body Mass Index 31.01 (95.25 kg, 175.26 cm) al4 ED Course: 04:03 Patient arrived in ED. wm 04:34 Derian Melendez MD is Attending Physician. kdr 04:42 Triage completed. al4 04:42 Arm band placed on. al4 04:48 Alycia Marcelino, RAMSEY is Primary Nurse. ll3 04:48 Patient has correct armband on for positive identification. Bed in low position. Call ll3 light in reach. Side rails up X 1. Adult w/ patient. 05:38 No provider procedures requiring assistance completed. Patient did not have IV access ll3 during this emergency room visit. Administered Medications: 05:17 Drug: SOLU-Medrol (methylPREDNISolone sodium succinate) 125 mg Route: IM; Site: left ll3 gluteus; 05:38 Follow up: Response: No adverse reaction ll3 05:17 Drug: Colcrys (colchicine) 1.2 mg Route: PO; ll3 05:38 Follow up: Response: No adverse reaction ll3 Outcome: 05:05 Discharge ordered by . kdr 05:38 Discharged to home ambulatory. ll3 05:38 Condition: stable 05:38 Discharge instructions given to patient, Instructed on discharge instructions, follow up and referral plans. medication usage, Demonstrated understanding of instructions, follow-up care, medications, Prescriptions given X 3. 05:39 Patient left the ED. ll3 Signatures: Derian Melendez MD MD [facility] Mackenzie Jenkins Lynsea, RN RN 3 Lester Monroy
[2021-12-17] MEDS ORDERED: METHYLPREDNISOLONE 125 MG INJ ONE (05:11)
[2021-12-17] MEDS ORDERED: COLCHICINE 0.6 MG TAB ONE (05:12)
[2021-12-17 08:22] VITALS: BP 162/85; TEMP 99.5; O2SAT 98
== END 2021-12-17 05:39 | disposition home or self-care (01) ==
LOC: ER 04:00
DX: M10.9 Gout, unspecified (principal); M10.42 Other secondary gout, elbow
CPT/HCPCS: 96372; 99283; J2930

== ENCOUNTER 2022-10-23 10:10 | Emergency (ER) | payer BC ==
--- OUTSIDE RECORDS SUMMARY | 2022-10-23 10:12 | XMS REPORT | Continuity of Care Document ---
:1960 Author Organization [facility] t Address [address] [place] [address] Dr. Cardona [address] [place] [id number] Care Team Providers Name Role Phone Unavailable Unavailable Unavailable Problems This patient has no known problems. Allergies, Adverse Reactions, Alerts This patient has no known allergies or adverse reactions. Medications This patient has no known medications. Procedures This patient has no known procedures. Results This patient has no known results.
[2022-10-23] MEDS ORDERED: KETOROLAC 30 MG/ML INJ ONE (10:31)
--- NOTE | 2022-10-23 12:09 | RAD REPORT ---
EXAM DESCRIPTION: RAD - Hip Left 2 View - 10/23/2022 12:00 pm CLINICAL HISTORY: hip pain Pain and swelling COMPARISON: No comparisons FINDINGS: Mild arthritic changes involve the left hip. No acute fracture or dislocation.
--- NOTE | 2022-10-23 12:09 | RAD REPORT ---
EXAM DESCRIPTION: RAD - Pelvis - 10/23/2022 12:00 pm CLINICAL HISTORY: left hip pain COMPARISON: Hip Left 2 View dated 10/23/2022 FINDINGS: No fracture, dislocation or radiographic evidence of AVN. IMPRESSION: Negative study.
--- NOTE | 2022-10-23 12:10 | RAD REPORT ---
EXAM DESCRIPTION: RAD - Knee Left 3 View - 10/23/2022 12:00 pm CLINICAL HISTORY: fall, knee pain COMPARISON: Knee Left 3 view dated 10/19/2014 FINDINGS: Mild tricompartmental arthritic changes. No fracture or joint effusion.
--- NOTE | 2022-10-23 12:14 | EDPHYS ---
Physician Documentation [facility] Name: Salazar Poole Age: 62 yrs Sex: Male : 1960 Arrival Date: 10/23/2022 Time: 10:12 Bed 12 Private MD: Paul Rosenthal ED Physician Jesse Burgos HPI: 10/23 10:26 This 62 yrs old Male presents to ER via Ambulatory with complaints of Hip jmm Pain, Fall Injury, Leg Pain - left. 10:26 The patient or guardian reports an injury. Onset: The symptoms/episode began/occurred jmm acutely, yesterday. Modifying factors: The symptoms are alleviated by nothing, the symptoms are aggravated by weight bearing. This is a 62-year-old male with history of gout, diabetes mellitus, hypertension the presents emerged part with complaints of left hip pain which occurred after he fell while bowling. Pain radiates from the hip down to the knee.. Historical: - Allergies: 10:19 No Known Allergies; vg1 - Home Meds: 10:19 Metformin Oral [Active]; Lisinopril Oral [Active]; vg1 - PMHx: 10:19 Gout; Diabetes mellitus; Hypertensive disorder; vg1 - PSHx: 10:19 knee sx; Left 2012; vg1 - Immunization history:: Client reports receiving the 2nd dose of the Covid vaccine. - Social history:: Smoking status: Patient denies any tobacco usage or history of. ROS: 10:26 Constitutional: Negative for fever, chills, and weight loss, Cardiovascular: Negative jmm for chest pain, palpitations, and edema, Respiratory: Negative for shortness of breath, cough, wheezing, and pleuritic chest pain. 10:26 MS/extremity: Positive for injury or acute deformity, pain. 10:26 All other systems are negative. Exam: 10:26 Constitutional: This is a well developed, well nourished patient who is awake, alert, jmm and in no acute distress. Head/Face: atraumatic. Eyes: EOMI, no conjunctival erythema appreciated ENT: Moist Mucus Membranes Neck: Trachea midline, Supple Chest/axilla: Normal chest wall appearance and motion. Cardiovascular: Regular rate and rhythm. No edema appreciated Respiratory: Normal respirations, no respiratory distress appreciated Abdomen/GI: Non distended Back: Normal ROM Skin: General appearance color normal 10:26 Musculoskeletal/extremity: Left lateral hip pain on palpation, painful flexion of the left hip, full range of motion appreciated left knee, compartments are soft, full dorsalis pedis pulse, neurovascular intact. 10:26 Skin: Appearance: Color: normal in color. 10:26 Neuro: Orientation: is normal, Mentation: is normal, Memory: is normal. 10:26 Psych: Behavior/mood is pleasant, cooperative. Vital Signs: 10:17 BP 176 / 90; Pulse 88; Resp 16; Temp 98.4; Pulse Ox 99% ; Weight 89.81 kg; Pain 8/10; vg1 11:15 BP 150 / 93; Pulse 79; Resp 18 S; Pulse Ox 98% on R/A; Pain 5/10; kc6 12:15 BP 146 / 89; Pulse 74; Resp 18 S; Pulse Ox 99% on R/A; Pain 3/10; jl7 MDM: 10:26 Patient medically screened. [facility] 12:13 Data reviewed: vital signs, nurses notes. I considered the following discharge [facility] prescriptions or medication management in the emergency department Medications were administered in the Emergency Department. See MAR. Test considered but Not performed: Other Details CT. Historians other than the Patient: Spouse/Significant Other: Spouse. Care significantly affected by the following chronic conditions: Diabetes, Hypertension. Counseling: I had a detailed discussion with the patient and/or guardian regarding: the historical points, exam findings, and any diagnostic results supporting the discharge/admit diagnosis, radiology results, the need for outpatient follow up, to return to the emergency department if symptoms worsen or persist or if there are any questions or concerns that arise at home. Response to treatment: the patient's symptoms have markedly improved after treatment, and as a result, I will discharge patient. 10/23 10:27 Order name: Pelvis XRAY; Complete Time: 12:09 [facility] 10/23 10:27 Order name: Hip Left 2 View XRAY; Complete Time: 12:10 [facility] 10/23 10:32 Order name: Knee Left 3 View XRAY; Complete Time: 12:11 [facility] Administered Medications: 10:32 Drug: Ketorolac 30 mg Route: IM; Site: right deltoid; kc6 11:15 Follow up: Response: No adverse reaction; Pain is decreased; RASS: Alert and Calm (0) kc6 Disposition: 13:35 Co-signature as Attending Physician, Jesse Burgos MD I reviewed the patient's care rn provided by the Advanced Practice Provider and agree with the diagnosis and treatment plan. Disposition Summary: 10/23/22 12:14 Discharge Ordered Location: Home [facility] Condition: Stable jmm Diagnosis - Strain of muscle, fascia and tendon of left hip jmm Followup: [facility] - With: Ilan Posada MD - When: 2 - 3 days - Reason: Recheck today's complaints, Continuance of care, Re-evaluation by your physician Discharge Instructions: - Discharge Summary Sheet jmm - Hip Pain [facility] Forms: - Work release form m - Medication Reconciliation Form [facility] - Thank You Letter [facility] - Antibiotic Education [facility] - Prescription Opioid Use [facility] Prescriptions: - Pepcid 20 mg Oral Tablet - take 1 tablet by ORAL route every 12 hours for 10 days; 20 tablet; Refills: 0, [facility] Product Selection Permitted - Diclofenac Sodium 75 mg Oral Tablet Sustained Release - take 1 tablet by ORAL route 2 times per day; 30 tablet; Refills: 0, Product [facility] Selection Permitted - orphenadrine citrate 100 mg Oral Tablet Sustained Release - take 1 tablet by ORAL route 2 times per day As needed; 20 tablet; Refills: 0, [facility] Product Selection Permitted Signatures: Dispatcher [employer] Kodak Berger PA PA jmm Nieto, Roman, MD MD rn Garcia, Victoria RN RN vg1 Uma Rashid RN RN kc6
--- NOTE | 2022-10-23 12:14 | ER ---
Nurse's Notes [facility] Name: Salazar Poole Age: 62 yrs Sex: Male : 1960 Arrival Date: 10/23/2022 Time: 10:12 Bed 12 Private MD: Paul Rosenthal Diagnosis: Strain of muscle, fascia and tendon of left hip Presentation: 10/23 10:17 Chief complaint: Patient states: was bowling last night and slipped on nora and fell vg1 onto Left knee; states pain in Left Hip that radiates down to Left knee. Denies numbness or tingling to left leg. Coronavirus screen: Vaccine status: Patient reports receiving the 2nd dose of the covid vaccine. Client denies travel out of the [place] in the last 14 days. Ebola Screen: Patient negative for fever greater than or equal to 101.5 degrees Fahrenheit, and additional compatible Ebola Virus Disease symptoms. Initial Sepsis Screen: Does the patient meet any 2 criteria? No. Patient's initial sepsis screen is negative. Does the patient have a suspected source of infection? No. Patient's initial sepsis screen is negative. Risk Assessment: Do you want to hurt yourself or someone else? Patient reports no desire to harm self or others. Onset of symptoms was October 22, 2022. 10:17 Method Of Arrival: Ambulatory vg1 10:17 Acuity: DUARTE 3 vg1 Triage Assessment: 10:19 General: Appears uncomfortable, Behavior is calm, cooperative. Pain: Complains of pain vg1 in Left hip, left knee Pain currently is 8 out of 10 on a pain scale. Pain began 1 day ago. Aggravated by repositioning, weight bearing, Noted to be grimacing. Cardiovascular: Patient's skin is warm and dry. Musculoskeletal: Reports pain in left leg. Historical: - Allergies: 10:19 No Known Allergies; vg1 - Home Meds: 10:19 Metformin Oral [Active]; Lisinopril Oral [Active]; vg1 - PMHx: 10:19 Gout; Diabetes mellitus; Hypertensive disorder; vg1 - PSHx: 10:19 knee sx; Left 2012; vg1 - Immunization history:: Client reports receiving the 2nd dose of the Covid vaccine. - Social history:: Smoking status: Patient denies any tobacco usage or history of. Screenin:26 [facility] ED Fall Risk Assessment (Adult) History of falling in the last 3 months, kc6 including since admission Yes- single mechanical fall (1 pt) Confusion or Disorientation No (0 pts) Intoxicated or Sedated No (0 pts) Impaired Gait No (0 pts) Mobility Assist Device Used No (0 pt) Altered Elimination No (0 pt) Score/Fall Risk Level 0 - 2 = Low Risk Oriented to surroundings, Maintained a safe environment, Educated pt \T\ family on fall prevention, incl call for assistance when getting out of bed, Assessed \T\ reinforced patient's understanding of fall precautions, Hourly rounding (assess needs \T\ fall precautionary measures) done. Abuse screen: Denies threats or abuse. Denies injuries from another. Nutritional screening: No deficits noted. Tuberculosis screening: No symptoms or risk factors identified. Assessment: 10:25 General: Appears in no apparent distress. comfortable, Behavior is calm, cooperative, kc6 appropriate for age. Pain: Complains of pain in left hip, left knee Pain does not radiate. Pain currently is 8 out of 10 on a pain scale. Quality of pain is described as sharp, Pain began 1 day ago. Is continuous, Alleviated by rest, Aggravated by increased activity, repositioning, weight bearing, Noted to be grimacing, resistant to movement, Also complains of no other associated symptoms. Neuro: Birch Agitation-Sedation Scale (RASS): 0 - Alert and Calm Level of Consciousness is awake, alert, obeys commands, Oriented to person, place, time, situation, Appropriate for age. Cardiovascular: Heart tones S1 S2 present Capillary refill < 3 seconds. Respiratory: Airway is patent Trachea midline Respiratory effort is even, unlabored, Respiratory pattern is regular, symmetrical, Breath sounds are clear bilaterally. GI: No signs and/or symptoms were reported involving the gastrointestinal system. : No signs and/or symptoms were reported regarding the genitourinary system. EENT: No signs and/or symptoms were reported regarding the EENT system. Derm: No signs and/or symptoms reported regarding the dermatologic system. Skin is intact, Skin is pink, warm \T\ dry. Musculoskeletal: No signs and/or symptoms reported regarding the musculoskeletal system. Circulation, motion, and sensation intact. Capillary refill < 3 seconds, Range of motion: intact in all extremities. 11:15 Reassessment: Patient appears in no apparent distress at this time. No changes from kc6 previously documented assessment. Patient and/or family updated on plan of care and expected duration. Pain level reassessed. Patient is alert, oriented x 3, equal unlabored respirations, skin warm/dry/pink. client stated his pain has decreased from an 8/10 to a 5/10. 11:55 Reassessment: Patient appears in no apparent distress at this time. No changes from jl7 previously documented assessment. Patient and/or family updated on plan of care and expected duration. Pain level reassessed. Patient is alert, oriented x 3, equal unlabored respirations, skin warm/dry/pink. client stated his pain has decreased from a 5/10 to a 3/10 Patient states feeling better. Patient states symptoms have improved. Vital Signs: 10:17 BP 176 / 90; Pulse 88; Resp 16; Temp 98.4; Pulse Ox 99% ; Weight 89.81 kg; Pain 8/10; vg1 11:15 BP 150 / 93; Pulse 79; Resp 18 S; Pulse Ox 98% on R/A; Pain 5/10; kc6 12:15 BP 146 / 89; Pulse 74; Resp 18 S; Pulse Ox 99% on R/A; Pain 3/10; jl7 ED Course: 10:12 Patient arrived in ED. am2 10:13 Paul Rosenthal MD is Private Physician. am2 10:13 Kodak Mcdowell [facility] jmm 10:13 Jesse Burgos MD is Attending Physician. jmm 10:19 Triage completed. vg1 10:19 Arm band placed on. vg1 10:25 Uma Rashid, RAMSEY is Primary Nurse. kc6 10:27 Patient has correct armband on for positive identification. Bed in low position. Call kc6 light in reach. Side rails up X 1. Adult w/ patient. 11:28 Pelvis XRAY Sent. mm9 11:28 Hip Left 2 View XRAY Sent. mm9 11:28 Knee Left 3 View XRAY Sent. mm9 12:02 Pelvis XRAY In Process Unspecified. EDMS 12:02 Hip Left 2 View XRAY In Process Unspecified. EDMS 12:02 Knee Left 3 View XRAY In Process Unspecified. EDMS 12:14 Ilan Posada MD is Referral Physician. jmm 12:20 No provider procedures requiring assistance completed. Patient did not have IV access jl7 during this emergency room visit. Administered Medications: 10:32 Drug: Ketorolac 30 mg Route: IM; Site: right deltoid; kc6 11:15 Follow up: Response: No adverse reaction; Pain is decreased; RASS: Alert and Calm (0) kc6 Medication: 10:27 VIS not applicable for this client. kc6 Outcome: 12:14 Discharge ordered by MD. angel luis 12:20 Discharged to home ambulatory, with significant other. jl7 12:20 Condition: stable 12:20 Discharge instructions given to patient, significant other, Instructed on discharge instructions, follow up and referral plans. medication usage, Demonstrated understanding of instructions, follow-up care, medications, Prescriptions given X 3. 12:20 Patient left the ED. jl7 Signatures: Dispatcher [employer] EDMS Kodak Mcdowell PA PA jmm Leal, Jahala, RN RN jl7 Ashley Kaur Victoria RN RN jong1 Uma Rashid RN RN kc6 [facility] [employer] mm9 Corrections: (The following items were deleted from the chart) 11:17 11:15 Reassessment: Patient appears in no apparent distress at this time. No changes kc6 from previously documented assessment. Patient and/or family updated on plan of care and expected duration. Pain level reassessed. Patient is alert, oriented x 3, equal unlabored respirations, skin warm/dry/pink. kc6
[2022-10-23 15:40] VITALS: TEMP 98.4
[2022-10-23 15:42] VITALS: BP 146/89; O2SAT 99
== END 2022-10-23 12:20 | disposition home or self-care (01) ==
LOC: ER 10:10
DX: S76.012A Strain of muscle, fascia and tendon of left hip, initial encounter (principal); E11.9 Type 2 diabetes mellitus without complications; I10 Essential (primary) hypertension
CPT/HCPCS: 72170; 96372; 99283

== ENCOUNTER 2024-08-28 16:05 | Emergency (ER) | payer BC ==
--- OUTSIDE RECORDS SUMMARY | 2024-08-28 16:08 | XMS REPORT | Continuity of Care Document ---
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
--- NOTE | 2024-08-28 17:29 | RAD REPORT ---
EXAMINATION: CT ABDOMEN AND PELVIS WITHOUT CONTRAST CLINICAL INDICATION: FLANK PAIN TECHNIQUE: CT abdomen and pelvis was performed, without IV contrast, as per department protocol. Axia l, sagittal and coronal reconstructions were obtained. One or more of the following dose reduction techniques were used: Automated exposure control, adjustment of the mA and kV according to the patien t size, and iterative reconstruction. Unless otherwise specified, incidental findings do not require dedicated imaging follow-up. COMPARISON: No prior exam. FINDINGS: The lack of intravenous contrast limits the sensitivity of this exam for evaluation of solid visceral organs, vascular structures, and retroperitoneum. LOWER CHEST: The visualized lung bases are clear. LIVER:Mild fatty liver is present. No focal lesion or biliary dilatation is seen. Grossly unremarka ble gallbladder. SPLEEN: Normal size. No focal lesion. PANCREAS: No mass, ductal dilation, or cyndee-pancreatic fluid. ADRENALS: Normal; no mass. KIDNEYS AND URETERS: Normal size and contour. No hydronephrosis. URINARY BLADDER: Normal contour. GASTROINTESTINAL TRACT: No evidence of bowel obstruction, significant free fluid, free air or abscess . Moderate stool is retained throughout the colon. APPENDIX: Normal appendix. LYMPH NODES: No lymphadenopathy. MUSCULOSKELETAL: Prominent disc bulges lower lumbar levels. ADDITIONAL FINDINGS: None. IMPRESSION: No acute or concerning abnormalities in the abdomen or pelvis, with evaluation limited by lack of IV contrast.
[2024-08-28] MEDS ORDERED: ONDANSETRON 4 MG (ODT) TAB ONE (17:36)
[2024-08-28] MEDS ORDERED: MORPHINE 4 MG/ML SYR ONE (17:36)
[2024-08-28 17:59] LABS: Specific Gravity 1.024 (1.005-1.030); Urine Bilirubin NEGATIVE (Negative); Urine Blood Negative (Negative); Urine Clarity Clear (Clear); Urine Color Light-Yellow (Yellow); Urine Glucose 4+ (Over) (Negative); Urine Ketones TRACE (Negative); Urine Microscopic Reflex YN NO UMIC; Urine Nitrite NEGATIVE (Negative); Urine Protein NEGATIVE (Negative); Urine Urobilinogen 1+ (Normal)
--- NOTE | 2024-08-28 18:03 | EDPHYS ---
Physician Documentation [facility] Name: Salazar Poole Age: 64 yrs Sex: Male : 1960 Arrival Date: 08/28/2024 Time: 16:05 Bed 17 Private MD: ED Physician Juan Lee HPI: 08/28 22:34 This 64 yrs old Male presents to ER via Ambulatory with complaints of Back kb Pain. 22:36 Patient is a 64-year-old male who presents for right low back pain that is worse with kb movement that started 4 days ago. Denies any urinary symptoms. States he lifted a toilet on Monday, 5 days ago, was working in and out of the house on Monday and the pain started once he started to relax on Monday night. Pain aggravated by movement, alleviated by rest. Denies fever. Denies numbness, tingling, incontinence of bowel or bladder.. Historical: - Allergies: 16:22 No Known Drug Allergies; hb - PMHx: 16:22 diabetes mellitus; Gout; Hypertensive disorder; hb - PSHx: 16:22 knee sx; Left 2012; hb - Immunization history:: Adult Immunizations up to date. - Infectious Disease History:: Denies. - Social history:: Smoking status: Patient denies any tobacco usage or history of. ROS: 22:34 Constitutional: As per HPI kb Exam: 22:34 Constitutional: This is a well developed, well nourished patient who is awake, alert, kb and in no acute distress. Head/Face: Normocephalic, atraumatic. ENT: Moist Mucous membranes Cardiovascular: Regular rate Respiratory: Respirations even and unlabored. No increased work of breathing. Talking in full sentences Skin: Warm, dry with normal turgor. Normal color. MS/ Extremity: Pulses equal, no cyanosis. Neurovascular intact. Full, normal range of motion. Neuro: Awake and alert, GCS 15, oriented to person, place, time, and situation. 22:34 Abdomen/GI: Inspection: abdomen appears normal, Bowel sounds: normal, Palpation: soft, in all quadrants, mild abdominal tenderness, in the anterior aspect of right lateral abdomen and posterior aspect of right lateral abdomen, 22:34 Back: pain, that is moderate, of the right low back, Vital Signs: 16:18 BP 147 / 86; Pulse 87; Resp 16; Temp 97.7(TE); Pulse Ox 97% on R/A; Pain 8/10; hb 18:30 BP 135 / 78; Pulse 81; Resp 16; Temp 98; Pulse Ox 98% ; bp 16:18 Pain Scale: Adult hb MDM: 16:14 Medical Screening Exam initiated kb 22:35 Differential diagnosis: nephrolithiasis, UTI, sciatica, strain. Data reviewed: vital kb signs, nurses notes. Counseling: I had a detailed discussion with the patient and/or guardian regarding the historical points, exam findings, and any diagnostic results supporting the discharge/admit diagnosis, lab results, radiology results, the need for outpatient follow up, a family practitioner, to return to the emergency department if symptoms worsen or persist or if there are any questions or concerns that arise at home. 08/28 16:25 Order name: Urinalysis w/ reflexes; Complete Time: 18:00 kb 08/28 18:37 Order name: Glucose, Ancillary Testing; Complete Time: 18:38 EDMS 08/28 16:25 Order name: CT Stone Protocol; Complete Time: 17:30 kb 08/28 18:00 Order name: Blood Glucose Level; Complete Time: 18:40 kb Administered Medications: 17:41 Drug: Ondansetron Oral Disintegrating Tablet Oral Disintegrating Tablet 4 mg PO once bp Route: PO; 18:51 Follow up: Response: No adverse reaction bp 17:41 Drug: morphine IM 4 mg IM once Route: IM; Site: right gluteus; bp 18:51 Follow up: Response: No adverse reaction bp Disposition Summary: 08/28/24 18:03 Discharge Ordered Notes: Location: Home kb Condition: Stable kb Diagnosis - Low back pain kb Followup: kb - With: Emergency Department - When: As needed - Reason: Worsening of condition Followup: kb - With: Private Physician - When: 2 - 3 days - Reason: Recheck today's complaints, Continuance of care, Re-evaluation by your physician Discharge Instructions: - Discharge Summary Sheet kb - Musculoskeletal Pain kb Forms: - Medication Reconciliation Form kb - Antibiotic Education kb - Prescription Opioid Use kb - Patient Portal Instructions kb - Leadership Thank You Letter kb Prescriptions: - Diclofenac Sodium 75 mg Oral tablet, delayed release (enteric coated) - take 1 tablet ORAL route 2 times per day As needed; 30 tablet; Refills: 0, kb Product Selection Permitted - orphenadrine citrate 100 mg Oral Tablet Sustained Release - take 1 tablet ORAL route 2 times per day As needed; 20 tablet; Refills: 0, kb Product Selection Permitted Signatures: Dispatcher [employer] Cassidy Márquez, PETERC Leatha Borden, RN RN Demetrius Sagastume RN RN bp
--- NOTE | 2024-08-28 18:03 | ER ---
[facility] Name[facility] Salazar Poole Age: 64 yrs Sex: Male : 1960 Arrival Date: 08/28/2024 Time: 16:05 Bed 17 Private MD: Diagnosis: Low back pain Presentation: 08/28 16:18 Chief complaint: Right low back pain that radiates to flank x 4 days. Denies urinary hb symptoms. Coronavirus screen: At this time, the client does not indicate any symptoms associated with coronavirus-19. Ebola Screen: No symptoms or risks identified at this time. Initial Sepsis Screen: Does the patient meet any 2 criteria? No. Patient's initial sepsis screen is negative. Does the patient have a suspected source of infection? No. Patient's initial sepsis screen is negative. Risk Assessment: Do you want to hurt yourself or someone else? Patient reports no desire to harm self or others. Onset of symptoms was August 25, 2024. 16:18 Method Of Arrival: Ambulatory hb 16:18 Acuity: DUARTE 3 hb Triage Assessment: 16:30 General: Appears in no apparent distress. uncomfortable, Behavior is calm, cooperative, bp appropriate for age. Pain: Complains of pain in back. EENT: No deficits noted. Neuro: No deficits noted. Cardiovascular: No deficits noted. Respiratory: No deficits noted. GI: No signs and/or symptoms were reported involving the gastrointestinal system. : No signs and/or symptoms were reported regarding the genitourinary system. Derm: No deficits noted. Musculoskeletal: Circulation, motion, and sensation intact. Range of motion: intact in all extremities. Historical: - Allergies: 16:22 No Known Drug Allergies; hb - PMHx: 16:22 diabetes mellitus; Gout; Hypertensive disorder; hb - PSHx: 16:22 knee sx; Left 2012; hb - Immunization history:: Adult Immunizations up to date. - Infectious Disease History:: Denies. - Social history:: Smoking status: Patient denies any tobacco usage or history of. Screenin:30 [facility] ED Fall Risk Assessment (Adult) History of falling in the last 3 months, bp including since admission No falls in past 3 months (0 pts) Confusion or Disorientation No (0 pts) Intoxicated or Sedated No (0 pts) Impaired Gait No (0 pts) Mobility Assist Device Used No (0 pt) Altered Elimination No (0 pt) Score/Fall Risk Level 0 - 2 = Low Risk. Abuse screen: Denies threats or abuse. Denies injuries from another. Nutritional screening: No deficits noted. Tuberculosis screening: No symptoms or risk factors identified. Assessment: 16:30 General: Appears in no apparent distress. uncomfortable, Behavior is calm, cooperative, bp appropriate for age. 18:30 Reassessment: Patient appears in no apparent distress at this time. Patient is alert, bp oriented x 3, equal unlabored respirations, skin warm/dry/pink. Patient states symptoms have improved. Neuro: Level of Consciousness is awake, alert, obeys commands, Oriented to Appropriate for age. Vital Signs: 16:18 BP 147 / 86; Pulse 87; Resp 16; Temp 97.7(TE); Pulse Ox 97% on R/A; Pain 8/10; hb 18:30 BP 135 / 78; Pulse 81; Resp 16; Temp 98; Pulse Ox 98% ; bp 16:18 Pain Scale: Adult hb ED Course: 16:07 Patient arrived in ED. ra3 16:14 Cassidy Felton FNP-C is PHCP. kb 16:14 Juan Lee MD is Attending Physician. kb 16:22 Triage completed. hb 16:22 Arm band placed on. hb 16:58 Demetrius Michael, RN is Primary Nurse. bp 17:21 CT Stone Protocol In Process Unspecified. EDMS 18:30 Patient has correct armband on for positive identification. Provided Education on: N/A. bp 18:30 No provider procedures requiring assistance completed. Patient did not have IV access bp during this emergency room visit. Administered Medications: 17:41 Drug: Ondansetron Oral Disintegrating Tablet Oral Disintegrating Tablet 4 mg PO once bp Route: PO; 18:51 Follow up: Response: No adverse reaction bp 17:41 Drug: morphine IM 4 mg IM once Route: IM; Site: right gluteus; bp 18:51 Follow up: Response: No adverse reaction bp Medication: 18:30 VIS not applicable for this client. bp Outcome: 18:03 Discharge ordered by . kb 18:30 Discharged to home ambulatory, with family, bp 18:30 Condition: stable 18:30 Discharge instructions given to patient, Instructed on discharge instructions, follow up and referral plans. medication usage, Demonstrated understanding of instructions, follow-up care, medications, Prescriptions given X 2, 18:51 Patient left the ED. bp Signatures: Dispatcher [employer] EDCassidy Cortés, MIGUEL DUARTE-Leatha Morales, RN RN Demetrius Sagastume RN RN bp Cinthya Jaquez 3
[2024-08-28 20:12] VITALS: BP 135/78; TEMP 98; O2SAT 98
== END 2024-08-28 18:51 | disposition home or self-care (01) ==
LOC: ER 16:05
DX: M54.50 Low back pain, unspecified (principal)
CPT/HCPCS: 82947; 81003; 76377; 74176; 96372; 99284; Q0162